=== PATIENT | female | born 1950 | race Caucasian/White ===

== ENCOUNTER 2016-12-30 08:08 | Emergency (ER) | payer BC ==
[~2016-12-30 08:08] MED LIST: ASA5GR PO; CYMBALTA60 PO; GLUCOPHXR PO; IBU800 PO; NEUR300 PO; NORV5 PO; ZESTORETIC1 TA1 PO
[2016-12-30 08:13] LABS: BASOPHILS 0.4 %; BASOPHILS ABSOLUTE 0.03 10/3/uL (0.0-0.16); EOSINOPHILS 3.3 %; EOSINOPHILS ABSOLUTE 0.26 10/3/uL (0.0-0.53); HEMATOCRIT 40.5 % (36.0-48.0); IMMATURE GRANULOCYTES 0.3 %; IMMATURE GRANULOCYTES ABSOLUTE 0.02 10/3/uL (0.0-0.11); LYMPHOCYTES 33.9 %; LYMPHOCYTES ABSOLUTE 2.64 10/3/uL (0.67-4.30); MEAN CORPUS HGB CONC 34.6 g/dL (32.0-36.0); MEAN CORPUSCULAR HEMOGLOB 31.6 pg (26.0-34.0); MEAN CORPUSCULAR VOLUME 91.4 fL (80-100); MEAN PLATELET VOLUME 9.9 fL (9.2-13.0); MONOCYTES 7.8 %; MONOCYTES ABSOLUTE 0.61 10/3/uL (0.21-1.20); NEUTROPHILS 54.3 %; NEUTROPHILS ABSOLUTE 4.22 10/3/uL (2.02-8.40); PLATELET COUNT 334 10/3/uL (150-400); RBC DISTRIBUTION WIDTH 13.1 % (12.0-16.0); RED CELL COUNT 4.43 10/6/uL (4.0-5.6); WHITE BLOOD CELLS 7.8 10/3/uL (4.5-10.5)
[2016-12-30 08:14] LABS: ER CBC TAT 0 Hrs 09 MinsNP; MANUAL DIFF NO %
[2016-12-30 08:29] LABS: CHLORIDE, SERUM 104 MMOL/L (96-112); CREATININE 0.88 MG/DL (0.55-1.02); GFR AFRICAN AMERICAN 80 ML/MIN (>=60); GFR NON AFRICAN AMERICAN 69 ML/MIN (>=60); POTASSIUM, SERUM 3.4 MMOL/L (3.5-5.3); SODIUM, SERUM 142 MMOL/L (135-148)
[2016-12-30 08:30] LABS: BUN (BLOOD UREA NITROGEN) 19 MG/DL (6-23); CO2 (CARBON DIOXIDE) 30 MMOL/L (24-34); GLUCOSE, SERUM 100 MG/DL (60-99)
[2016-12-30 09:49] LABS: ASCORBIC ACID (UR NOT ORDER) NEG (NEG); BILIRUBIN, URINE NEGATIVE (NEG); ER URINALYSIS TAT 0 Hrs 08 Mins; KETONE, URINE NEGATIVE (NEG); LEUKOCYTE ESTERASE(NOT OR TRACE (NEG); NITRITE (URINE) NEG (NEG); WBC (NOT ORDERED) (RFLEX) 3 (0-5)
== END 2016-12-30 10:37 | disposition home or self-care (01) ==
LOC: ER 08:08
PROVIDERS: Nurse Practitioner Family
DX: M25.552 Pain in left hip (principal); I10 Essential (primary) hypertension; F41.9 Anxiety disorder, unspecified; F32.9 Major depressive disorder, single episode, unspecified; E11.9 Type 2 diabetes mellitus without complications; M19.90 Unspecified osteoarthritis, unspecified site; Z90.49 Acquired absence of other specified parts of digestive tract; Z98.51 Tubal ligation status; Z98.84 Bariatric surgery status; Z88.5 Allergy status to narcotic agent; Z79.82 Long term (current) use of aspirin
CPT/HCPCS: 72131; 73700-LT; 80048; 81001; 85025; 96374; 99284

== ENCOUNTER 2017-01-02 19:37 | Inpatient (IN) | payer BC ==
--- NOTE | ~2017-01-02 | EGD ---
EGD REPORT [facility] [address] [address] NAME: JENNIFER RAE : [birth year] STATUS : ADM IN PAT#: [id number] AGE: 66 ADM/REG DATE : 01/02/17 MR#: [id number] REPORT SERV DATE: 01/09/17 DICTATED BY: JAIMIE JUAREZ DATE: 01/09/17 REPORT STATUS : Draft TRANSCRIBED BY: [facility] DATE: 01/09/17 [facility]oscopy Center Patient Name: Jennifer Rae Date of : 1950 Attending MD: JAIMIE JUAREZ MD Procedure Date No Time: 01/09/2017 Procedure: Colonoscopy Indications: Generalized abdominal pain, Anemia Referring MD: Rosalino Shields Medicines: Monitored Anesthesia Care Complications: No immediate complications. Procedure: Pre-Anesthesia Assessment: - ASA Grade Assessment: III - A patient with severe systemic disease. After I obtained informed consent, the scope was passed under direct vision. Throughout the procedure, the patient's blood pressure, pulse, and oxygen saturations were monitored continuously. The CF [id number] was introduced through the anus and advanced to the cecum, identified by appendiceal orifice and ileocecal valve. The colonoscopy was unusually difficult due to poor bowel prep with stool present. The patient tolerated the procedure well. The quality of the bowel preparation was poor. Findings: Non-bleeding internal hemorrhoids were found during retroflexion and were medium-sized. A large amount of extensive amounts of semi-solid solid stool was found in the entire colon, precluding visualization. Lavage of the area was performed using a large amount, resulting in incomplete clearance with continued poor visualization. The colon (entire examined portion) revealed significantly excessive looping. Impression: - Preparation of the colon was poor. - Non-bleeding internal hemorrhoids. - Stool in the entire examined colon. - There was significant looping of the colon. Recommendation: - Use sugar-free Metamucil one teaspoon PO BID daily. Procedure Code(s): --- Professional --- 68960, Colonoscopy, flexible, proximal to splenic flexure; diagnostic, with or without collection of EGD REPORT [facility] [address] [place] [address] [place]. [address] NAME: JENNIFER RAE : [birth year] STATUS : ADM IN [facility]#: [id number] AGE: 66 ADM/REG DATE : 01/02/17 MR#: [id number] REPORT SERV DATE: 01/09/17 DICTATED BY: JAIMIE JAUREZ DATE: 01/09/17 REPORT STATUS : Draft TRANSCRIBED BY: [employer] DATE: 01/09/17 specimen(s) by brushing or washing, with or without colon decompression (separate procedure) Diagnosis Code(s): --- Professional --- K64.8, Other hemorrhoids R10.84, Generalized abdominal pain D64.9, Anemia, unspecified CPT copyright 2013 [employer]. All rights reserved. The codes documented in this report are preliminary and upon barrel charrer review may be revised to meet current compliance requirements. JAIMIE JUAREZ MD 01/09/2017 11:52 AM This report has been signed electronically. Number of Addenda: 0 Note Initiated On: 01/09/2017 9:55 AM Scope Withdrawal Time 0 hours 6 minutes 52 seconds [address] [place] [address]
--- NOTE | ~2017-01-02 | IDS ---
Interim Discharge Summary [facility] [address] [place]. [address] NAME: GERARDO WATSON : 54 STATUS : ADM IN [facility]#: [id number] AGE: 66 ADM/REG DATE : 01/02/17 MR#: [id number] REPORT SERV DATE: 01/09/17 DICTATED BY: ROBERT CORONA DATE: 01/08/17 REPORT STATUS : Draft TRANSCRIBED BY: MODJr DATE: 01/08/17 ADMISSION DATE: 01/02/2017 DISCHARGE DATE: DATE OF INTERIM DISCHARGE: 01/08/2017. PROCEDURES DONE: 1. 01/03/2017 ultrasound of gallbladder; gallstones. No current sonographic evidence of cholecystitis or biliary obstruction. Obstruction of pancreas by gas. 2. 01/02/2017 CTA chest; CT of thoracic and abdominal aorta demonstrate no dissection, no aneurysm changes. There are some minimal atelectatic changes at the lung bases. There is a lap band in place. Gallbladder is full, wall is slightly indistinct. Are there any clinical features to suspect early cholecystitis ?. Incidentally includes splenic granulomata, prior hysterectomy. 3. 01/02/2017 CT abdomen and pelvis without contrast; Subtle 1 mm radiodense gallstones just within the lower gallbladder body and neck versus subtle radiodense tumefactive sludge. Questionable mild gallbladder wall thickening. Lap band device in satisfactory position. Status post hysterectomy and appendectomy. 4. 01/02/2017 chest x-ray PA and lateral, no acute cardiopulmonary abnormality. 5. 01/04/2017, EGD report by Dr. Song impression: Normal nasopharynx. LA grade B reflux esophagitis B. Rule out Nation's esophagus. Biopsied. Hiatal hernia. Gastritis. Biopsied. Nonbleeding erosive gastropathy. Normal examined duodenum. Biopsied. Recommend full liquid diet. Prilosec 20 mg p.o. daily x3 months. Follow up in three weeks. CONSULT: Dr. Mckeon, Dr. Perez, and Dr. Song for GI. REASON FOR ADMISSION: Abdominal pain. HISTORY OF HOSPITAL STAY: A 66-year-old white female with past medical history of hypertension, diabetes type 2, chronic back pain, history of lap band surgery presenting with abdominal pain. The patient was admitted for further evaluation of her abdominal pain. It was also noted the patient had hypertensive emergency during the time of the patient's abdominal pain. Cardiology was consulted regarding the patient's hypertensive urgency. The patient was started on hydrochlorothiazide, metoprolol which greatly improved the patient's blood pressure. More importantly, the patient had an epigastric pain that GI was consulted for further evaluation and treatment. The patient underwent colonoscopy which shows esophagitis. DIAGNOSES ON DISCHARGE: 1. Abdominal pain secondary to a positive esophagitis/gastritis. The patient underwent EGD which showed esophagitis and gastritis. The patient was started on full liquid diet. However, GI is trying to do a colonoscopy. Apparently, the patient cannot tolerate GoLYTELY. Hence, the patient was put on Mag citrate and lactulose to encourage bowel movements. 2. Hypertensive urgency. Currently asymptomatic. Continue the patient's Interim Discharge Summary [address] [address] NAME: GERARDO WATSON : [birth year] STATUS : ADM IN [facility]#: [id number] AGE: 66 ADM/REG DATE : 01/02/17 MR#: [id number] REPORT SERV DATE: 01/09/17 DICTATED BY: ROBERT CORONA. DATE: 01/08/17 REPORT STATUS : Draft TRANSCRIBED BY: MODJr DATE: 01/08/17 hydrochlorothiazide and metoprolol as well as lisinopril. 3. Diabetes type 2, currently well controlled. 4. Elevated troponin secondary to demand ischemia. 5. Obesity. BELA/ROEL Robert Corona MD / [id number] CC: MD Rosalino Liu
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
--- NOTE | ~2017-01-02 | CN ---
Consultation Report [facility] [address] [place]. [address] NAME: GERARDO RAE : 54 STATUS : ADM IN [facility]#: [id number] AGE: 66 ADM/REG DATE : 01/02/17 MR#: [id number] REPORT SERV DATE: 01/03/17 DICTATED BY: CB THOMAS DATE: 01/03/17 REPORT STATUS : Draft TRANSCRIBED BY: MODL DATE: 01/03/17 CARDIOVASCULAR CONSULTATION DATE OF CONSULTATION: 01/03/2017 CHIEF COMPLAINT: Elevated troponin. HISTORY OF PRESENT ILLNESS: Ms Rae is a 66-year-old woman with no prior cardiovascular history. She does have a history of hypertension, type 2 diabetes, and obesity status post lap band surgery. She was admitted through the emergency room at [facility] with abdominal pain and worsening chronic lower back pain. She had nausea and vomiting. Her blood pressure was noted to be quite elevated with systolic around 230. Her initial troponin was 0.1, subsequent troponin of 0.16. EKG shows no acute ischemic changes. The patient initially was complaining more of abdominal pain. There was some component of midsternal chest pain. Chest pain has currently resolved. PAST MEDICAL HISTORY: 1. Hypertension. 2. Type 2 diabetes. 3. Chronic lower back pain. 4. History of lap band surgery. 5. Status post hysterectomy and appendectomy. ALLERGIES: INCLUDE ULTRAM AND ZANAFLEX. MEDICATIONS ON ADMISSION: Include Cymbalta, gabapentin, ibuprofen, lisinopril/HCTZ 20/25 once a day, metformin 500 mg daily, and prednisone started in the emergency room for worsening back pain recently. FAMILY HISTORY: There is no family history of early coronary artery disease. SOCIAL HISTORY: She does not smoke or drink alcohol. REVIEW OF SYSTEMS: A complete review of systems was obtained, which is negative in detail except as mentioned above in the HPI. PHYSICAL EXAMINATION: BLOOD PRESSURE: 150/70, heart rate of 80, RESPIRATIONS: 14. GENERAL: Comfortable in no acute distress. HEENT: Anicteric. No xanthelasma. Lips without cyanosis. NECK: No JVD. Carotids 2+ and symmetric. No carotid bruits. Consultation Report [facility] [address] [place]. [address] NAME: GERARDO RAE : 54 STATUS : ADM IN PAT#: [id number] AGE: 66 ADM/REG DATE : 01/02/17 MR#: [id number] REPORT SERV DATE: 01/03/17 DICTATED BY: CB THOMAS DATE: 01/03/17 REPORT STATUS : Draft TRANSCRIBED BY: ROEL DATE: 01/03/17 LUNGS: CTA bilaterally. No wheezes or rhonchi. No accessory muscle use. COR: Regular rate and rhythm. Normal S1, S2. There is a grade 2/6 systolic ejection murmur at the base with radiation to the carotids bilaterally. ABD: Soft, nontender, nondistended. Normal bowel sounds. No abdominal bruits. EXT: No clubbing, cyanosis or edema 2+ and symmetric distal pulses. SKIN: Warm. Dry. No venous stasis changes. MS: No kyphosis. NEURO/PSYCH: Oriented x3. No anxiety or depression. LABORATORY STUDIES: BNP of 138. White count of 17,000, hematocrit of 40, and platelets of 327. Potassium of 3.4, creatinine of 0.78. Troponin of 0.1, 0.16, and 0.1. EKG: A 12-lead EKG shows sinus rhythm at 75 beats per minute. Nonspecific T-wave abnormalities are noted. No Q-waves. No ST-elevations. IMPRESSION: This is a 66-year-old woman without prior cardiovascular history, admitted with abdominal pain and severe hypertension. In this setting, she has had a demand ischemia type event. She has not had a non-ST elevation myocardial infarction. I recommend adding a beta shani to her regimen of DAVID inhibitor/HCTZ and Norvasc for her blood pressure control. I have recommended an echocardiogram. Conservative management from a Cardiovascular standpoint. Further treatment for her abdominal pain is ongoing. RAFAELA/ROEL Cb Thomas M.D. / [id number] CC: Neeraj Keith
--- NOTE | ~2017-01-02 | DS ---
Discharge Summary [facility] [address] [place]. [address] NAME: GERARDO WATSON : 54 STATUS : DIS IN PAT#: [id number] AGE: 66 ADM/REG DATE : 01/02/17 MR#: [id number] REPORT SERV DATE: 01/11/17 DICTATED BY: JONAH VALLES DATE: 01/10/17 REPORT STATUS : Draft TRANSCRIBED BY: MODL DATE: 01/10/17 ADMISSION DATE: 01/02/2017 DISCHARGE DATE: 01/10/2017 PRINCIPAL DIAGNOSIS: Hypertensive emergency with a positive troponin. SECONDARY DIAGNOSES: 1. Chest pain and epigastric abdominal pain due to esophagitis and gastritis. 2. Chronic low back pain. 3. Type 2 diabetes, in remission. HISTORY OF PRESENT ILLNESS: Please see Dr. Dukes's dictation on 01/02/2017. HOSPITAL COURSE: Please see interim summary by Dr. Kincaid on 01/08/2017. Subsequent hospital course, the patient's diet was advanced with her erosive esophagitis. She tolerated this well. She actually required no insulin whatsoever and not even a diabetic diet. Her pain was managed with p.o. medications. She met the maximum benefit of hospitalization by 01/10/2017. She is released to follow up with Dr. Rosalino Shields in one to two weeks. Diet and activity as tolerated. She was still unsteady on her feet, a walker prescription was given, but it was not thought that she will need this very long. She was out put back on Cymbalta 60 mg b.i.d. reduction of which may have contributed to her symptoms, Lopressor 50 mg b.i.d., Protonix 40 mg b.i.d., magnesium oxide daily, Lidoderm patch, Carafate q.i.d., Prinivil-HCT daily, Neurontin daily. RSM/ROEL Jonah Valles M.D. / [id number] CC: Neeraj Lowe PA
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
--- NOTE | ~2017-01-02 | CN ---
Consultation Report [facility] [address] [place]. [address] NAME: GERARDO WATSON : 54 STATUS : ADM IN PAT#: [id number] AGE: 66 ADM/REG DATE : 01/02/17 MR#: [id number] REPORT SERV DATE: 01/04/17 DICTATED BY: SAMEER PEREZ DATE: 01/04/17 REPORT STATUS : Draft TRANSCRIBED BY: ROEL DATE: 01/04/17 INPATIENT SPINE SURGERY CONSULTATION DATE OF CONSULTATION: 01/04/2017 REASON FOR CONSULTATION: Lumbar stenosis. HISTORY OF PRESENT ILLNESS: The patient is a 66-year-old female, who was seen and examined in her hospital room. She was admitted to the Hospitalist Service on 01/02/2017, with chief complaint of abdominal pain. She states that last week, she started having rather severe left lower extremity pain. She states that she has had some lower extremity pain in the left side for about 2 months, and she has had back pain for greater than 1 year. She states that she was given Medrol Dosepak and a muscle relaxer and that actually helped significantly with her leg pain and was doing much better until the abdominal issues started and she ended up being admitted to the hospital. REVIEW OF SYSTEMS: She denies chest pain or shortness of breath or bowel or bladder changes. PAST MEDICAL HISTORY: Includes hypertension, diabetes, chronic back pain. HOME MEDICATIONS: Include Cymbalta; gabapentin; ibuprofen; lisinopril, hydrochlorothiazide, metformin, and prednisone. PHYSICAL EXAMINATION: GENERAL: The patient is in no acute distress. She is sitting up in bed on the side of the bed and appears comfortable. PSYCHIATRIC: Alert and oriented x3. Normal mood and affect. Gait was not tested. VASCULAR: No extremity swelling. NEUROLOGIC: Strength in lower extremities remains 5/5 for the hip flexors, hamstrings, quadriceps, tibialis anterior, EHL, gastrocsoleus, and peroneals. IMAGING: I have reviewed the CT scan. She does have a calcified disk herniation on the left side at L5-S1 causing nerve compression. ASSESSMENT: 1. Calcified disk herniation L5-S1 left side. 2. Chronic back pain. 3. Left lower extremity pain, resolving. PLAN: I discussed options with the patient. The fact that she is doing much better and is focusing on her abdominal pain and hypertension at this point. I will have Physical Therapy work with the patient. I would be happy to see her as an outpatient but nothing emergent would need to be done during the hospital stay. Consultation Report [place] [id number] [place]. [address] NAME: GERARDO WATSON : 54 STATUS : ADM IN PAT#: [id number] AGE: 66 ADM/REG DATE : 01/02/17 MR#: [id number] REPORT SERV DATE: 01/04/17 DICTATED BY: SAMEER PEREZ DATE: 01/04/17 REPORT STATUS : Draft TRANSCRIBED BY: MODL DATE: 01/04/17 ASHLEY/ROEL Sameer Perez DO / [id number] CC: Cb Branch Jr, MD FRANKLIN H BAKER
--- NOTE | ~2017-01-02 | EGD ---
EGD REPORT [facility] [address] [place] [address] NAME: JENNIFER RAE : 54 STATUS : ADM IN PAT#: [id number] AGE: 66 ADM/REG DATE : 01/02/17 MR#: [id number] REPORT SERV DATE: 01/05/17 DICTATED BY: JAIMIE JUAREZ DATE: 01/05/17 REPORT STATUS : Draft [facility]ANSCRIBED [facility]: [facility] DATE: 01/05/17 [facility] Patient Name: Jennifer Rae Date of : 1950 Attending MD: JAIMIE JUAREZ MD Procedure Date No Time: 01/05/2017 Procedure: Upper GI endoscopy Indications: Upper abdominal pain Referring MD: Rosalino Shields Medicines: Monitored Anesthesia Care Complications: No immediate complications. Procedure: Pre-Anesthesia Assessment: - ASA Grade Assessment: III - A patient with severe systemic disease. After obtaining informed consent, the endoscope was passed under direct vision. Throughout the procedure, the patient's blood pressure, pulse, and oxygen saturations were monitored continuously. The GIF [id number] was introduced through the mouth, and advanced to the third part of duodenum. The upper GI endoscopy was accomplished without difficulty. The patient tolerated the procedure well. Findings: The nasopharynx was normal. LA Grade B (one or more mucosal breaks greater than 5 mm, not extending between the tops of two mucosal folds) esophagitis with no bleeding was found in the lower third of the esophagus. Biopsy with a cold forceps was performed for histology. Verification of patient identification for the specimen was done. Estimated blood loss was minimal. A 4 cm hiatus hernia was present. Diffuse mild inflammation characterized by congestion (edema) and erythema was found in the entire examined stomach. Biopsies were taken with a cold forceps for histology. Verification of patient identification for the specimen was done. Estimated blood loss was minimal. Multiple dispersed, medium-sized non-bleeding erosions were found in the stomach. There were no stigmata of recent bleeding. The examined duodenum was normal. Biopsies were taken with a cold forceps for histology. Verification of patient identification for the specimen was done. Estimated blood loss was minimal. Impression: - Normal nasopharynx. - LA Grade B reflux esophagitis. Rule out Nation's esophagus. Biopsied. EGD REPORT [address] [address] NAME: JENNIFER RAE : 54 STATUS : ADM IN [facility]#: [id number] AGE: 66 ADM/REG DATE : 01/02/17 MR#: [id number] REPORT SERV DATE: 01/05/17 DICTATED BY: JAIMIE JUAREZ DATE: 01/05/17 REPORT STATUS : Draft TRANSCRIBED BY: [employer] DATE: 01/05/17 - Hiatus hernia. - Gastritis. Biopsied. - Non-bleeding erosive gastropathy. - Normal examined duodenum. Biopsied. Recommendation: - Full liquid diet today. - Follow an antireflux regimen daily. - Use Prilosec (omeprazole) 20 mg PO daily for 3 months. - Return to my office in 3 weeks. Procedure Code(s): --- Professional --- 47596, Esophagogastroduodenoscopy, flexible, transoral; with biopsy, single or multiple Diagnosis Code(s): --- Professional --- K21.0, Gastro-esophageal reflux disease with esophagitis K44.9, Diaphragmatic hernia without obstruction or gangrene K29.70, Gastritis, unspecified, without bleeding K31.9, Disease of stomach and duodenum, unspecified R10.10, Upper abdominal pain, unspecified CPT copyright 2013 [employer]. All rights reserved. The codes documented in this report are preliminary and upon salesperson sheet music review may be revised to meet current compliance requirements. JAIMIE JUAREZ MD 01/05/2017 1:37 PM This report has been signed electronically. Number of Addenda: 0 Note Initiated On: 01/05/2017 1:11 PM Scope Withdrawal Time 0 hours 0 minutes 0 seconds [address] [place] [id number]
--- NOTE | ~2017-01-02 | HP ---
History And Physical [place] [id number] [facility] [place]. [address] NAME: GERARDO WATSON : 54 STATUS : ADM IN [facility]#: [id number] AGE: 66 ADM/REG DATE : 01/02/17 MR#: [id number] REPORT SERV DATE: 01/03/17 DICTATED BY: ALLI SKINNER DATE: 01/03/17 REPORT STATUS : Draft TRANSCRIBED BY: MODJr DATE: 01/03/17 DATE OF ADMISSION: 01/02/2017 ADDENDUM: LABS AND IMAGING: CTA of the chest, abdomen, and pelvis: No acute intrathoracic abnormalities detected. No aortic dissection. No pulmonary embolism. No acute intraabdominal abnormality or significant vascular lesions detected. Moderate gallbladder distention is likely on the basis of fasting. Given patient's persistent need for nitroglycerin drip for control of patient's blood pressure, she will be admitted to the IMCU. We will attempt to wean her off her nitroglycerin drip with use of oral medications and IV p.r.n.'s. Given negative CTA of the chest, abdomen, and pelvis, again I suspect that the patient's epigastric abdominal pain is likely gastritis or esophagitis from recent prednisone usage. As mentioned before, we will try to support her with holding her steroids, place her on PPI b.i.d., and observe for improvement. Critical care time spent on patient's admission is 50 minutes. KIRK/ROEL Alli Skinner MD / [id number] CC: Neeraj Keith FRANKLIN H
[2017-01-02 18:02] LABS: BASOPHILS 0.1 %; BASOPHILS ABSOLUTE 0.02 10/3/uL (0.0-0.16); EOSINOPHILS 0 %; HEMATOCRIT 41.7 % (36.0-48.0); HEMOGLOBIN 14.4 g/dL (12.0-16.0); IMMATURE GRANULOCYTES 0.8 %; IMMATURE GRANULOCYTES ABSOLUTE 0.15 10/3/uL (0.0-0.11); LYMPHOCYTES 12.2 %; LYMPHOCYTES ABSOLUTE 2.34 10/3/uL (0.67-4.30); MEAN CORPUS HGB CONC 34.5 g/dL (32.0-36.0); MEAN CORPUSCULAR HEMOGLOB 31.9 pg (26.0-34.0); MEAN CORPUSCULAR VOLUME 92.3 fL (80-100); MEAN PLATELET VOLUME 10.1 fL (9.2-13.0); MONOCYTES 7.8 %; MONOCYTES ABSOLUTE 1.51 10/3/uL (0.21-1.20); NEUTROPHILS 79.1 %; NEUTROPHILS ABSOLUTE 15.22 10/3/uL (2.02-8.40); PLATELET COUNT 375 10/3/uL (150-400); RBC DISTRIBUTION WIDTH 13.3 % (12.0-16.0); RED CELL COUNT 4.52 10/6/uL (4.0-5.6)
[2017-01-02 18:03] LABS: ER CBC TAT 0 Hrs 08 Mins; MANUAL DIFF NO %; WHITE BLOOD CELLS 19.2 10/3/uL (4.5-10.5)
[2017-01-02 18:19] LABS: CALCIUM, SERUM 9.4 MG/DL (8.5-10.4); CHLORIDE, SERUM 98 MMOL/L (96-112); CO2 (CARBON DIOXIDE) 31 MMOL/L (24-34); CREATININE 0.81 MG/DL (0.55-1.02); GFR AFRICAN AMERICAN 89 ML/MIN (>=60); GFR NON AFRICAN AMERICAN 77 ML/MIN (>=60); GLUCOSE, SERUM 112 MG/DL (60-99); POTASSIUM, SERUM 3.4 MMOL/L (3.5-5.3); SODIUM, SERUM 136 MMOL/L (135-148)
[2017-01-02 18:20] LABS: BUN (BLOOD UREA NITROGEN) 26 MG/DL (6-23)
[2017-01-02 18:21] LABS: CHEST PAIN PROFILE TAT 0 Hrs 26 Mins
[2017-01-02 18:28] LABS: PARTIAL THROMBO TIME 26.4 SEC (22.5-37.2); PROTIME (NOT ORD) 12.6 SEC (12.0-14.5)
[2017-01-02 19:24] LABS: ALBUMIN 4.4 G/DL (3.5-5.0); ALKALINE PHOSPHATASE 85 U/L (45-117); SGOT(AST) 17 U/L (5-40); SGPT(ALT) 22 U/L (5-65); TOTAL BILIRUBIN 0.5 MG/DL (0-1.2); TOTAL PROTEIN 8.6 G/DL (6.0-8.5)
[2017-01-02 19:26] LABS: DIRECT BILIRUBIN < 0.1 MG/DL (0.0-0.4); INDIRECT BILIRUBIN(NOT ORDER) 0.4 MG/DL (0.1-0.9)
[2017-01-02] MEDS ORDERED: CYMBALTA60 PO (20:09)
[2017-01-02] MEDS ORDERED: ADVIL PO (20:10)
[2017-01-02] MEDS ORDERED: NEUR300 PO (20:10)
[2017-01-02] MEDS ORDERED: ZESTORETIC1 TA1 PO (20:12)
[2017-01-02] MEDS ORDERED: GLUCPH PO (20:13)
[2017-01-02] MEDS ORDERED: MEDROLPAK4 PO (20:13)
[2017-01-03 04:29] LABS: BASOPHILS 0.1 %; BASOPHILS ABSOLUTE 0.02 10/3/uL (0.0-0.16); EOSINOPHILS 0 %; HEMOGLOBIN 13.7 g/dL (12.0-16.0); IMMATURE GRANULOCYTES 0.5 %; IMMATURE GRANULOCYTES ABSOLUTE 0.08 10/3/uL (0.0-0.11); LYMPHOCYTES 18.2 %; LYMPHOCYTES ABSOLUTE 3.09 10/3/uL (0.67-4.30); MEAN CORPUS HGB CONC 33.4 g/dL (32.0-36.0); MEAN CORPUSCULAR HEMOGLOB 31.4 pg (26.0-34.0); MEAN PLATELET VOLUME 10.1 fL (9.2-13.0); MONOCYTES 10.1 %; MONOCYTES ABSOLUTE 1.72 10/3/uL (0.21-1.20); NEUTROPHILS 71.1 %; NEUTROPHILS ABSOLUTE 12.09 10/3/uL (2.02-8.40); PLATELET COUNT 327 10/3/uL (150-400); RBC DISTRIBUTION WIDTH 13.3 % (12.0-16.0); RED CELL COUNT 4.36 10/6/uL (4.0-5.6)
[2017-01-03 04:38] LABS: BUN (BLOOD UREA NITROGEN) 27 MG/DL (6-23); CALCIUM, SERUM 9.3 MG/DL (8.5-10.4); CHLORIDE, SERUM 96 MMOL/L (96-112); CO2 (CARBON DIOXIDE) 31 MMOL/L (24-34); CPK (IF ELEVATED MB BANDS) 52 U/L (0-200); CREATININE 0.78 MG/DL (0.55-1.02); GFR AFRICAN AMERICAN 93 ML/MIN (>=60); GFR NON AFRICAN AMERICAN 80 ML/MIN (>=60); GLUCOSE, SERUM 106 MG/DL (60-99); POTASSIUM, SERUM 3.4 MMOL/L (3.5-5.3); SODIUM, SERUM 135 MMOL/L (135-148)
[2017-01-03 04:41] LABS: LACTATE 4.2 MMOL/L (0.3-2.4); MANUAL DIFF NO %
[2017-01-03 04:50] LABS: B NATRIURETIC PEPTIDE (BNP) 137.9 PG/ML (< 100.0)
[2017-01-03 07:28] LABS: GLYCOHEMOGLOBIN (HbA1c) 5.9 % (4.7-6.1)
[2017-01-03 13:08] LABS: FREE T4 1.18 NG/DL (0.76-1.46); ULTRASENSITIVE TSH 0.6 MCIU/ML (0.358-3.740)
[2017-01-03 13:09] LABS: TROPONIN I 0.05 NG/ML (<0.05)
[2017-01-03 20:04] LABS: CREATININE, URINE 56.3 MG/DL
[2017-01-04 06:31] LABS: BASOPHILS 0.1 %; BASOPHILS ABSOLUTE 0.01 10/3/uL (0.0-0.16); EOSINOPHILS 0.1 %; EOSINOPHILS ABSOLUTE 0.02 10/3/uL (0.0-0.53); HEMATOCRIT 40.1 % (36.0-48.0); HEMOGLOBIN 13.6 g/dL (12.0-16.0); IMMATURE GRANULOCYTES 0.4 %; IMMATURE GRANULOCYTES ABSOLUTE 0.06 10/3/uL (0.0-0.11); LYMPHOCYTES 11.7 %; LYMPHOCYTES ABSOLUTE 1.87 10/3/uL (0.67-4.30); MEAN CORPUS HGB CONC 33.9 g/dL (32.0-36.0); MEAN CORPUSCULAR HEMOGLOB 31.3 pg (26.0-34.0); MEAN CORPUSCULAR VOLUME 92.4 fL (80-100); MONOCYTES 8.7 %; MONOCYTES ABSOLUTE 1.38 10/3/uL (0.21-1.20); NEUTROPHILS ABSOLUTE 12.58 10/3/uL (2.02-8.40); PLATELET COUNT 279 10/3/uL (150-400); RBC DISTRIBUTION WIDTH 13.1 % (12.0-16.0); RED CELL COUNT 4.34 10/6/uL (4.0-5.6); WHITE BLOOD CELLS 15.9 10/3/uL (4.5-10.5)
[2017-01-04 06:40] LABS: ALKALINE PHOSPHATASE 85 U/L (45-117); CALCIUM, SERUM 9.3 MG/DL (8.5-10.4); CHLORIDE, SERUM 98 MMOL/L (96-112); CO2 (CARBON DIOXIDE) 31 MMOL/L (24-34); GFR AFRICAN AMERICAN 106 ML/MIN (>=60); GFR NON AFRICAN AMERICAN 92 ML/MIN (>=60); GLUCOSE, SERUM 122 MG/DL (60-99); POTASSIUM, SERUM 3.4 MMOL/L (3.5-5.3); SGOT(AST) 12 U/L (5-40); SGPT(ALT) 17 U/L (5-65); SODIUM, SERUM 136 MMOL/L (135-148); TOTAL PROTEIN 7.2 G/DL (6.0-8.5)
[2017-01-04 06:42] LABS: MANUAL DIFF NO %
[2017-01-04 06:44] LABS: A/G RATIO 0.7 (0.7-1.9); BUN (BLOOD UREA NITROGEN) 14 MG/DL (6-23); GLOBULIN 4.2 G/DL (2.5-4.1)
[2017-01-05 07:01] LABS: BASOPHILS 0.2 %; BASOPHILS ABSOLUTE 0.03 10/3/uL (0.0-0.16); EOSINOPHILS 0.9 %; EOSINOPHILS ABSOLUTE 0.12 10/3/uL (0.0-0.53); HEMATOCRIT 37.1 % (36.0-48.0); HEMOGLOBIN 12.7 g/dL (12.0-16.0); IMMATURE GRANULOCYTES 0.8 %; IMMATURE GRANULOCYTES ABSOLUTE 0.11 10/3/uL (0.0-0.11); LYMPHOCYTES 18.5 %; LYMPHOCYTES ABSOLUTE 2.51 10/3/uL (0.67-4.30); MEAN CORPUS HGB CONC 34.2 g/dL (32.0-36.0); MEAN CORPUSCULAR HEMOGLOB 31.6 pg (26.0-34.0); MEAN CORPUSCULAR VOLUME 92.3 fL (80-100); MEAN PLATELET VOLUME 10.7 fL (9.2-13.0); MONOCYTES 9.4 %; MONOCYTES ABSOLUTE 1.27 10/3/uL (0.21-1.20); NEUTROPHILS 70.2 %; NEUTROPHILS ABSOLUTE 9.51 10/3/uL (2.02-8.40); PLATELET COUNT 273 10/3/uL (150-400); RBC DISTRIBUTION WIDTH 13.5 % (12.0-16.0); RED CELL COUNT 4.02 10/6/uL (4.0-5.6); WHITE BLOOD CELLS 13.6 10/3/uL (4.5-10.5)
[2017-01-05 07:03] LABS: MANUAL DIFF NO %
[2017-01-05 07:38] LABS: CALCIUM, SERUM 9.5 MG/DL (8.5-10.4); CHLORIDE, SERUM 97 MMOL/L (96-112); CO2 (CARBON DIOXIDE) 34 MMOL/L (24-34); GFR AFRICAN AMERICAN 78 ML/MIN (>=60); GFR NON AFRICAN AMERICAN 68 ML/MIN (>=60); GLUCOSE, SERUM 123 MG/DL (60-99); POTASSIUM, SERUM 3.7 MMOL/L (3.5-5.3); SODIUM, SERUM 136 MMOL/L (135-148)
[2017-01-05 07:39] LABS: BUN (BLOOD UREA NITROGEN) 20 MG/DL (6-23)
[2017-01-06 06:34] LABS: BASOPHILS 0.2 %; BASOPHILS ABSOLUTE 0.02 10/3/uL (0.0-0.16); EOSINOPHILS 1.4 %; EOSINOPHILS ABSOLUTE 0.18 10/3/uL (0.0-0.53); HEMOGLOBIN 13.2 g/dL (12.0-16.0); IMMATURE GRANULOCYTES 0.2 %; IMMATURE GRANULOCYTES ABSOLUTE 0.03 10/3/uL (0.0-0.11); LYMPHOCYTES 19.6 %; LYMPHOCYTES ABSOLUTE 2.54 10/3/uL (0.67-4.30); MEAN CORPUS HGB CONC 33.8 g/dL (32.0-36.0); MEAN CORPUSCULAR HEMOGLOB 31.4 pg (26.0-34.0); MEAN CORPUSCULAR VOLUME 92.9 fL (80-100); MEAN PLATELET VOLUME 9.9 fL (9.2-13.0); MONOCYTES 9.1 %; MONOCYTES ABSOLUTE 1.18 10/3/uL (0.21-1.20); NEUTROPHILS 69.5 %; NEUTROPHILS ABSOLUTE 9.04 10/3/uL (2.02-8.40); PLATELET COUNT 306 10/3/uL (150-400); RBC DISTRIBUTION WIDTH 13.6 % (12.0-16.0)
[2017-01-06 06:35] LABS: MANUAL DIFF NO %
[2017-01-06 06:53] LABS: A/G RATIO 0.6 (0.7-1.9); ALBUMIN 2.9 G/DL (3.5-5.0); BUN (BLOOD UREA NITROGEN) 19 MG/DL (6-23); CALCIUM, SERUM 9.3 MG/DL (8.5-10.4); CHLORIDE, SERUM 98 MMOL/L (96-112); CO2 (CARBON DIOXIDE) 33 MMOL/L (24-34); CREATININE 0.85 MG/DL (0.55-1.02); GFR AFRICAN AMERICAN 84 ML/MIN (>=60); GFR NON AFRICAN AMERICAN 72 ML/MIN (>=60); GLOBULIN 4.7 G/DL (2.5-4.1); GLUCOSE, SERUM 113 MG/DL (60-99); PHOSPHORUS, SERUM 3.3 MG/DL (2.5-4.5); SGOT(AST) 14 U/L (5-40); SGPT(ALT) 18 U/L (5-65); SODIUM, SERUM 136 MMOL/L (135-148); TOTAL BILIRUBIN 0.7 MG/DL (0-1.2); TOTAL PROTEIN 7.6 G/DL (6.0-8.5)
[2017-01-06 06:56] LABS: ALKALINE PHOSPHATASE 105 U/L (45-117)
[2017-01-07 05:59] LABS: BASOPHILS 0.2 %; BASOPHILS ABSOLUTE 0.02 10/3/uL (0.0-0.16); EOSINOPHILS 2.4 %; EOSINOPHILS ABSOLUTE 0.29 10/3/uL (0.0-0.53); HEMATOCRIT 35.3 % (36.0-48.0); HEMOGLOBIN 12.2 g/dL (12.0-16.0); IMMATURE GRANULOCYTES 0.3 %; IMMATURE GRANULOCYTES ABSOLUTE 0.04 10/3/uL (0.0-0.11); LYMPHOCYTES 19.8 %; LYMPHOCYTES ABSOLUTE 2.37 10/3/uL (0.67-4.30); MEAN CORPUS HGB CONC 34.6 g/dL (32.0-36.0); MEAN CORPUSCULAR HEMOGLOB 31.4 pg (26.0-34.0); MEAN PLATELET VOLUME 9.5 fL (9.2-13.0); NEUTROPHILS 67.3 %; NEUTROPHILS ABSOLUTE 8.07 10/3/uL (2.02-8.40); PLATELET COUNT 294 10/3/uL (150-400); RBC DISTRIBUTION WIDTH 13.3 % (12.0-16.0); RED CELL COUNT 3.88 10/6/uL (4.0-5.6)
[2017-01-07 06:03] LABS: MANUAL DIFF NO %
[2017-01-07 06:16] LABS: A/G RATIO 0.6 (0.7-1.9); ALBUMIN 2.8 G/DL (3.5-5.0); ALKALINE PHOSPHATASE 108 U/L (45-117); BUN (BLOOD UREA NITROGEN) 17 MG/DL (6-23); CALCIUM, SERUM 9.5 MG/DL (8.5-10.4); CHLORIDE, SERUM 96 MMOL/L (96-112); CO2 (CARBON DIOXIDE) 31 MMOL/L (24-34); CREATININE 0.89 MG/DL (0.55-1.02); GFR AFRICAN AMERICAN 79 ML/MIN (>=60); GFR NON AFRICAN AMERICAN 68 ML/MIN (>=60); GLUCOSE, SERUM 121 MG/DL (60-99); PHOSPHORUS, SERUM 3.8 MG/DL (2.5-4.5); POTASSIUM, SERUM 3.9 MMOL/L (3.5-5.3); SGOT(AST) 14 U/L (5-40); SGPT(ALT) 24 U/L (5-65); SODIUM, SERUM 134 MMOL/L (135-148); TOTAL BILIRUBIN 0.6 MG/DL (0-1.2); TOTAL PROTEIN 7.8 G/DL (6.0-8.5)
[2017-01-08 09:16] LABS: BASOPHILS 0.2 %; BASOPHILS ABSOLUTE 0.02 10/3/uL (0.0-0.16); EOSINOPHILS 1.5 %; EOSINOPHILS ABSOLUTE 0.18 10/3/uL (0.0-0.53); HEMATOCRIT 38.8 % (36.0-48.0); HEMOGLOBIN 13.2 g/dL (12.0-16.0); IMMATURE GRANULOCYTES 0.3 %; IMMATURE GRANULOCYTES ABSOLUTE 0.04 10/3/uL (0.0-0.11); LYMPHOCYTES 22.5 %; LYMPHOCYTES ABSOLUTE 2.78 10/3/uL (0.67-4.30); MANUAL DIFF NO %; MEAN CORPUSCULAR HEMOGLOB 31.3 pg (26.0-34.0); MEAN CORPUSCULAR VOLUME 91.9 fL (80-100); MEAN PLATELET VOLUME 9.7 fL (9.2-13.0); MONOCYTES 8.9 %; NEUTROPHILS 66.6 %; NEUTROPHILS ABSOLUTE 8.24 10/3/uL (2.02-8.40); PLATELET COUNT 308 10/3/uL (150-400); RBC DISTRIBUTION WIDTH 13.3 % (12.0-16.0); RED CELL COUNT 4.22 10/6/uL (4.0-5.6); WHITE BLOOD CELLS 12.4 10/3/uL (4.5-10.5)
[2017-01-08 09:43] LABS: ALBUMIN 2.9 G/DL (3.5-5.0); BUN (BLOOD UREA NITROGEN) 15 MG/DL (6-23); CALCIUM, SERUM 8.9 MG/DL (8.5-10.4); CHLORIDE, SERUM 95 MMOL/L (96-112); CREATININE 0.84 MG/DL (0.55-1.02); GFR AFRICAN AMERICAN 85 ML/MIN (>=60); GFR NON AFRICAN AMERICAN 73 ML/MIN (>=60); GLUCOSE, SERUM 110 MG/DL (60-99); PHOSPHORUS, SERUM 4.6 MG/DL (2.5-4.5); SODIUM, SERUM 131 MMOL/L (135-148)
[2017-01-08 09:44] LABS: CO2 (CARBON DIOXIDE) 25 MMOL/L (24-34)
[2017-01-09 05:31] LABS: BASOPHILS 0.1 %; BASOPHILS ABSOLUTE 0.02 10/3/uL (0.0-0.16); EOSINOPHILS 1.4 %; EOSINOPHILS ABSOLUTE 0.19 10/3/uL (0.0-0.53); HEMATOCRIT 35.2 % (36.0-48.0); IMMATURE GRANULOCYTES 0.4 %; IMMATURE GRANULOCYTES ABSOLUTE 0.05 10/3/uL (0.0-0.11); LYMPHOCYTES 17.9 %; LYMPHOCYTES ABSOLUTE 2.43 10/3/uL (0.67-4.30); MANUAL DIFF NO %; MEAN CORPUS HGB CONC 34.1 g/dL (32.0-36.0); MEAN CORPUSCULAR HEMOGLOB 31.6 pg (26.0-34.0); MEAN CORPUSCULAR VOLUME 92.6 fL (80-100); MEAN PLATELET VOLUME 9.4 fL (9.2-13.0); MONOCYTES 7.8 %; MONOCYTES ABSOLUTE 1.05 10/3/uL (0.21-1.20); NEUTROPHILS 72.4 %; PLATELET COUNT 315 10/3/uL (150-400); RBC DISTRIBUTION WIDTH 13.3 % (12.0-16.0); WHITE BLOOD CELLS 13.5 10/3/uL (4.5-10.5)
[2017-01-09 05:45] LABS: A/G RATIO 0.6 (0.7-1.9); ALBUMIN 2.8 G/DL (3.5-5.0); BUN (BLOOD UREA NITROGEN) 15 MG/DL (6-23); CALCIUM, SERUM 9.2 MG/DL (8.5-10.4); CHLORIDE, SERUM 97 MMOL/L (96-112); CO2 (CARBON DIOXIDE) 29 MMOL/L (24-34); GFR AFRICAN AMERICAN 78 ML/MIN (>=60); GFR NON AFRICAN AMERICAN 68 ML/MIN (>=60); GLOBULIN 4.8 G/DL (2.5-4.1); GLUCOSE, SERUM 111 MG/DL (60-99); POTASSIUM, SERUM 3.5 MMOL/L (3.5-5.3); SGOT(AST) 21 U/L (5-40); SGPT(ALT) 28 U/L (5-65); SODIUM, SERUM 134 MMOL/L (135-148); TOTAL BILIRUBIN 0.6 MG/DL (0-1.2); TOTAL PROTEIN 7.6 G/DL (6.0-8.5)
[2017-01-09 05:49] LABS: ALKALINE PHOSPHATASE 148 U/L (45-117)
[2017-01-10] MEDS ORDERED: LIDODERM TOP (12:34)
[2017-01-10] MEDS ORDERED: MAGOX4 PO (12:36)
[2017-01-10] MEDS ORDERED: LOP50 PO (12:39)
[2017-01-10] MEDS ORDERED: LIDOCAINE PO (12:42)
[2017-01-10] MEDS ORDERED: [UNRECOGNIZED DRUG - OTHER] PO (12:42)
[2017-01-10] MEDS ORDERED: PROTONIX PO (12:43)
[2017-01-10] MEDS ORDERED: K-TABS10 MEQ PO (12:44)
[2017-01-10] MEDS ORDERED: SUCR PO (12:45)
== END 2017-01-10 14:33 | disposition home or self-care (01) | DRG 392 ==
LOC: ER 19:37 → IMCU 23:45 → 7NO 01-03 23:20
PROVIDERS: Emergency Medicine; Hospitalist; Internal Medicine; Internal Medicine Gastroenterology
PROC: 0DB98ZX Excision of Duodenum, Via Natural or Artificial Opening Endoscopic, Diagnostic (ICD-10-PCS; 2017-01-05)
PROC: 0DB68ZX Excision of Stomach, Via Natural or Artificial Opening Endoscopic, Diagnostic (ICD-10-PCS; 2017-01-05)
PROC: 0DB38ZX Excision of Lower Esophagus, Via Natural or Artificial Opening Endoscopic, Diagnostic (ICD-10-PCS; principal; 2017-01-05 13:18)
PROC: 0DJD8ZZ Inspection of Lower Intestinal Tract, Via Natural or Artificial Opening Endoscopic (ICD-10-PCS; 2017-01-09)
DX: K29.70 Gastritis, unspecified, without bleeding (principal); N17.9 Acute kidney failure, unspecified; I24.8 Other forms of acute ischemic heart disease; E11.9 Type 2 diabetes mellitus without complications; D64.9 Anemia, unspecified; I10 Essential (primary) hypertension; I16.0 Hypertensive urgency; F32.9 Major depressive disorder, single episode, unspecified; R10.9 Unspecified abdominal pain; Z90.710 Acquired absence of both cervix and uterus; Z98.890 Other specified postprocedural states; Z90.49 Acquired absence of other specified parts of digestive tract; Z88.8 Allergy status to other drugs, medicaments and biological substances; Z79.899 Other long term (current) drug therapy; M51.27 Other intervertebral disc displacement, lumbosacral region; K64.8 Other hemorrhoids; Z68.35 Body mass index [BMI] 35.0-35.9, adult; E66.9 Obesity, unspecified; M54.30 Sciatica, unspecified side; K21.0 Gastro-esophageal reflux disease with esophagitis; F41.9 Anxiety disorder, unspecified; M25.552 Pain in left hip; Z98.84 Bariatric surgery status; Z88.5 Allergy status to narcotic agent; Z79.82 Long term (current) use of aspirin
CPT/HCPCS: 71020; 71275; 72131; 73700-LT; 74174; 74176; 76705; 80048; 80053; 80069; 80076; 81001; 82550; 82570; 82962; 83036; 83605; 83690; 83735; 83880; 83935; 84100; 84300; 84439; 84443; 84484; 85025; 85610; 85730; 87641; 88305; 93005; 93306; 96365; 96366; 96374; 96375; 97116-GP; 97161-GP; 99284; 99285; A9270-GY; C9113; J0360; J1170; J2405; Q9967

== ENCOUNTER 2017-02-01 12:46 | Inpatient (IN) | payer BC ==
--- NOTE | ~2017-02-01 | DS ---
Discharge Summary [facility] [address] [place]. [address] NAME: GERARDO RAE : 54 STATUS : DIS IN PAT#: [id number] AGE: 66 ADM/REG DATE : 02/01/17 MR#: [id number] REPORT SERV DATE: 02/11/17 DICTATED BY: Marcella GALINDO DATE: 02/10/17 REPORT STATUS : Draft TRANSCRIBED BY: MODL DATE: 02/10/17 ADMISSION DATE: 02/01/2017 DISCHARGE DATE: 02/10/2017 The patient was admitted to the Hospitalist Service. CONSULTANTS: Ray Pollard D.O., Orthopedic Surgery. DISCHARGE DIAGNOSES: 1. Intractable low back pain with spinal stenosis and radiculopathy. 2. Status post left L5-S1 hemilaminectomy, foraminotomy, and facetectomy with anterior interbody cage insertion and transforaminal diskectomy. 3. Postoperative pain. 4. Nocturnal hypoxia. 5. Hypertension. 6. Gastroesophageal reflux disease with a history of erosive esophagitis. 7. Acute blood loss anemia postoperative. PROCEDURES: On 02/04/2017, the patient underwent microscopic navigation-assisted surgery consisting of a left L5-S1 hemilaminectomy, foraminotomy, and facetectomy with a sacral dome osteotomy; anterior interbody cage insertion and posterolateral interbody fusion with local bone graft and allograft per Dr. Ray Pollard. IMAGING AND DIAGNOSTICS: 1. On 02/02/2017, MRI of the L-spine showed herniation and neural foraminal stenosis at L5- S1. 2. On 02/01/2017, CT of the abdomen and pelvis revealed CT evidence of acute cholecystitis. No radiodense gallstones. Stable changes of appendectomy and hysterectomy. Otherwise, negative exam. 3. On 02/07/2017, chest x-ray, portable revealed no evidence of acute cardiopulmonary disease. 4. On 02/09/2017, the patient had overnight pulse oximetry, which showed total valid sampling time of 6 hours and 2 minutes, total time with O2 saturation less than 88% is 1 hour, 15 minutes and 54 seconds. Impression: There was significant oxygen desaturation during this study conducted with the patient breathing on room air. The oxygen desaturation event index was elevated suspicious for possible obstructive sleep apnea. Recommend supplemental O2 at 2 liters a minute with sleep. Additionally, recommend formal sleep study to evaluate for possible obstructive sleep apnea. LABORATORY STUDIES: 1. Discharge labs on 02/10/2017 revealed a CBC; white count 7.7, hemoglobin 9.3, hematocrit 28.5, and platelets 360,000. 2. Basic metabolic panel; sodium 137, potassium 4.3, chloride 99, CO2 34, BUN 12, creatinine 0.83, GFR 75, glucose 92, and calcium 9.0. HISTORY OF PRESENT ILLNESS: For complete history, please refer to admission H and P by Dr. Discharge Summary [address] [address] NAME: GERARDO RAE : 54 STATUS : DIS IN PAT#: [id number] AGE: 66 ADM/REG DATE : 02/01/17 MR#: [id number] REPORT SERV DATE: 02/11/17 DICTATED BY: Marcella GALINDO DATE: 02/10/17 REPORT STATUS : Draft TRANSCRIBED BY: ROEL DATE: 02/10/17 Placido Tapia on 02/01/2017. Briefly, Ms. Rae is a pleasant 66-year-old female with chief complaint of back pain and passing out. She was recently discharged from the hospital in December in the Hospitalist Service with severe erosive gastritis, esophagitis, abdominal pain, and chronic back pain. She came into the emergency room this time with complaints of passing out, syncope, and inability to stand and walk secondary to significant intractable low back pain. She was admitted to the Hospitalist Service for further evaluation and treatment. In the emergency room, she was noted to be dehydrated with an acute kidney injury as well. HOSPITAL COURSE: The patient was admitted to the orthopedic unit on defensive monitoring. She was given IV fluids, 2 g sodium, diabetic diet. DVT prophylaxis and orthostatic vital signs, IV fluids and PT eval and treat order was written. However, I initially saw the patient the following day. She was complaining of significant low back pain and sciatica with the left lower extremity pain radiating from her left buttock cheek down her left leg. She is requesting to be seen by Dr. Pollard. On this date, consult was requested and Dr. Pollard did see her. Orthostatic vital signs on 02/02/[address] Pollard saw the patient on 02/02/2017 and ordered an MRI of the L-spine, results are as above. On 02/03/2017, he discussed the risks and benefits of the surgery and the patient was in agreement to proceed, and she did undergo surgery as above on 02/04/2017. Since her surgery, she has been recovering slowly due to significant postop low back pain with continued sciatica down her left leg. Over the past several days since her surgery, her medications have been adjusted and currently are controlling her pain. She did have some noted hypoxia postop on day #3, therefore, she was placed back on oxygen 2 to 2.5 liters per nasal cannula. She was progressively weaned off this. However, on the night of 02/09/2017, an overnight pulse oximetry study was ordered on room air, results are as above. The patient did have significant times of desaturation and nocturnal O2 has been recommended as well as a formal outpatient sleep study. Today, 02/10/2017, the patient is feeling better. Pain is improved with the change in medication regimen and she is ready for discharge to rehabilitation at [facility]. Today, her O2 saturation on room air is 95%. Her vital signs are stable. Blood pressure is 130/63, heart rate 82, O2 saturation 98% on room air. She is afebrile. Her lungs are clear to auscultation bilaterally. Cardiovascular; she is in a sinus rhythm. No murmurs, rubs, or gallops. Abdomen is soft and nontender. Active bowel sounds. She did have several good bowel movements on the day prior to the discharge. She has palpable distal pulses with no edema, clubbing, or cyanosis. Her discharge laboratory studies are as above. Therefore, she is discharged safely over to [facility] for continued rehabilitation. DISCHARGE INSTRUCTIONS: Include: 1. Diet as tolerated. 2. Activity, PT and OT to evaluate and treat. 3. Discharge medications, which are as follows:. a. Acyclovir 400 mg p.o. every eight hours x1 week, stop after 6:00 a.m. dose on 02/12/2017. b. Colace 100 mg p.o. b.i.d., hold for loose stool. c. Cymbalta 60 mg p.o. b.i.d. d. Gabapentin 600 mg p.o. at bedtime and 300 mg p.o. at 9:00 a.m. and 3:00 p.m. Discharge Summary [facility] [address] [place]. [address] NAME: GERARDO RAE : 54 STATUS : DIS IN PAT#: [id number] AGE: 66 ADM/REG DATE : 02/01/17 MR#: [id number] REPORT SERV DATE: 02/11/17 DICTATED BY: Marcella GALINDO DATE: 02/10/17 REPORT STATUS : Draft TRANSCRIBED BY: ROEL DATE: 02/10/17 e. Lidoderm patch topically twice a day. f. Robaxin 500 mg p.o. every eight hours. g. Multivitamin one p.o. daily. h. Lopressor 50 mg p.o. b.i.d., hold for systolic blood pressure less than or equal to 120 and a heart rate less than 60. i. Protonix 40 mg p.o. daily. j. Metamucil one packet daily. k. Carafate 1 g before each meal and at bedtime. l. Tylenol 650 mg p.o. or p.r. q.4 hours p.r.n. m. Mylanta 30 mL p.o. p.r.n. n. Dulcolax suppository p.r.n. o. Dulcolax 15 mg tablet p.o. p.r.n. constipation. p. Valium 2 mg p.o. every four hours p.r.n. spasms. q. Benadryl 12.5 mg p.o. q.6 hours p.r.n. r. Hydrocodone 7.5/325 mg one to two tablets p.o. q.4 hours p.r.n. s. Melatonin 9 mg p.o. at bedtime p.r.n. t. Milk of magnesia 30 mL p.o. b.i.d. p.r.n. u. Zofran 4 mg p.o. p.r.n. every six hours. I. Senokot two tablets p.o. p.r.n. v. Fleet Enema p.r.n. constipation. I. Lisinopril/HCTZ 20/25 mg one p.o. daily, hold for systolic blood pressure less than or equal to 120. Other discharge instructions include Ms. Rae will follow up with her primary care provider, Dr. Rosalino Shields, after discharge from [facility]. She will follow up with Dr. Pollard as scheduled. I have personally made her a new patient appointment with Dr. Curt Lancaster, operations and maintenance specialist with [facility] on 03/29/2017 at 11:40 am. She is also prescribed nocturnal oxygen at 2 liters per nasal cannula at time of discharge from here and she will require home O2 when she is discharged from [facility] to home nocturnal oxygen at 2 liters per nasal cannula. DICTATED BY: TIFFANI Ayon DICTATED FOR: Neeraj Keith/ROEL TIFFANI Ayon Marcella Galindo M.D. Discharge Summary [address] [address] NAME: GERARDO RAE : 54 STATUS : DIS IN PAT#: [id number] AGE: 66 ADM/REG DATE : 02/01/17 MR#: [id number] REPORT SERV DATE: 02/11/17 DICTATED BY: Marcella GALINDO DATE: 02/10/17 REPORT STATUS : Draft TRANSCRIBED BY: MYRAL DATE: 02/10/17 / [id number] CC: Neeraj Keith FRANKLIN H Vincent Viscomi, M.D., F.C.C.PJorge A
--- NOTE | ~2017-02-01 | PUL ---
[address] [place]. [address] NAME: GERARDO WATSON : 54 STATUS : ADM IN [facility]#: [id number] AGE: 66 ADM/REG DATE : 02/01/17 MR#: [id number] REPORT SERV DATE: 02/10/17 DICTATED BY: CHELLY DENNISON DATE: 02/10/17 REPORT STATUS : Draft TRANSCRIBED BY: MODL DATE: 02/10/17 PULMONARY FUNCTION TEST START DATE OF TESTIN02/09/2017. END DATE OF TESTIN02/10/2017. COMMENTS: Testing was conducted with the patient breathing room air. RESULTS: 1. Total valid sampling time 6 hours and 2 minutes. 2. Total time with an oxygen saturation less than 88%, 1 hour 15 minutes and 54 seconds. 3. Oxygen desaturation event index 51.5. IMPRESSION: There was significant oxygen desaturation during this study conducted with the patient breathing room air. The oxygen desaturation event index was elevated suspicious for possible obstructive sleep apnea. Recommend supplemental oxygen at a minimum flow rate of 2 L/minute with sleep. Additionally, recommend formal sleep study to evaluate for possible obstructive sleep apnea if clinically indicated. PS/ROEL Chelly Dennison M.D. / [id number] CC: Neeraj Keith
--- NOTE | ~2017-02-01 | CN ---
Consultation Report [facility] [address] [place]. [address] NAME: GERARDO WATSON : 54 STATUS : ADM Nathalie PAT#: [id number] AGE: 66 ADM/REG DATE : 02/01/17 MR#: [id number] REPORT SERV DATE: 02/03/17 DICTATED BY: RAY MATHEW DATE: 02/02/17 REPORT STATUS : Draft TRANSCRIBED BY: MODL DATE: 02/02/17 CONSULTATION DATE OF CONSULTATION: 02/02/2017 CHIEF COMPLAINT: Severe back pain and left leg pain. 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 Over the years, she has had multiple forms of conservative care with time, medication, etc. She is not a candidate for epidural injections because of the history of diabetes, but otherwise she has had all the usual forms of conservative care. She had a CT scan a month ago on 12/29/2016, which was positive for severe disk degeneration at L5-S1. There was also a large spondylotic bar along the anterior aspect of the body of L5 which wraps around the exiting L5 nerve root and causes severe foraminal stenosis on the left side only. Her pain is intractable with standing and walking, and she has gotten to the point where she actually had to come to the ER and be admitted last night. I had actually set her up to see us in the office yesterday, but the pain was so severe she could not come out of the house, however, brought by EMS to the ER and admitted last night. Pain is now 10/10 and the patient just says she cannot take it any longer, something has to be done. The past medical history, social history, family history, medications, allergies, etc, is available in the history and physical. See that for detail. PHYSICAL EXAMINATION: GENERAL: She is alert, cooperative, well oriented. She ambulated independently, but does have severe pain with trying to transfer from sitting to standing. She had great difficulty with any attempts at ambulation. MUSCULOSKELETAL: The spine exam reveals no gross deformities. There is no step-offs in the midline. There is no significant paraspinous muscle tenderness or spasm. Straight leg raising tests are negative. She does have weakness of the left L5 nerve root. The tibialis anterior and EHL are all 4/5. She has had decreased L5 sensation to light touch and to pinwheel testing. She also has some stocking-glove decreased to light touch in both lower extremities associated with neuropathy. Patellar reflex is 1/4. The left Achilles is absent, the right Achilles is 1/4. Toes are downgoing. No ankle clonus is found. No abnormal pain behavior is noted. Vital signs are negative. Fabere signs are negative. Orthopedically, she has no pain with movement of hips, knees, or ankles. There are good pulses in all four extremities. No abnormal skin lesions are found. ASSESSMENT: Severe spinal stenosis, left L5-S1 due to spondylitic bar and foraminal stenosis. Would require complete facetectomy on the left in order to completely decompress. RECOMMENDATION: At this time, I am going to order an MRI which has not been done. She has Consultation Report [address] [place]. [address] NAME: GERARDO WATSON : 54 STATUS : ADM Nathalie PAT#: [id number] AGE: 66 ADM/REG DATE : 02/01/17 MR#: [id number] REPORT SERV DATE: 02/03/17 DICTATED BY: RAY MATHEW DATE: 02/02/17 REPORT STATUS : Draft TRANSCRIBED BY: ROEL DATE: 02/02/[address] scan, see if there is any additional other abnormality. CT scan does appear to show some mild to moderate degree of central stenosis and I want to further evaluate this with MRI. Final recommendations to follow. /ROEL Ray Mathew D.O. / [id number] CC: Neeraj Keith Franklin H
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
[2017-02-01 12:22] LABS: BASOPHILS 0.1 %; BASOPHILS ABSOLUTE 0.01 10/3/uL (0.0-0.16); EOSINOPHILS 0.8 %; EOSINOPHILS ABSOLUTE 0.08 10/3/uL (0.0-0.53); ER CBC TAT 0 Hrs 11 Mins; HEMATOCRIT 35.2 % (36.0-48.0); HEMOGLOBIN 12.3 g/dL (12.0-16.0); IMMATURE GRANULOCYTES 0.3 %; IMMATURE GRANULOCYTES ABSOLUTE 0.03 10/3/uL (0.0-0.11); LYMPHOCYTES 21.3 %; LYMPHOCYTES ABSOLUTE 2.01 10/3/uL (0.67-4.30); MEAN CORPUS HGB CONC 34.9 g/dL (32.0-36.0); MEAN CORPUSCULAR HEMOGLOB 31.8 pg (26.0-34.0); MEAN PLATELET VOLUME 9.8 fL (9.2-13.0); MONOCYTES 8.5 %; PLATELET COUNT 315 10/3/uL (150-400); RED CELL COUNT 3.87 10/6/uL (4.0-5.6); WHITE BLOOD CELLS 9.4 10/3/uL (4.5-10.5)
[2017-02-01 12:23] LABS: MANUAL DIFF NO %
[2017-02-01 12:28] LABS: INTERNATIONAL NORMAL RATI 1.2 UNITS (-)
[2017-02-01 12:29] LABS: PARTIAL THROMBO TIME 33.8 SEC (22.5-37.2); PROTIME (NOT ORD) 14.7 SEC (12.0-14.5)
[2017-02-01 12:40] LABS: A/G RATIO 0.5 (0.7-1.9); ALKALINE PHOSPHATASE 197 U/L (45-117); BUN (BLOOD UREA NITROGEN) 26 MG/DL (6-23); CALCIUM, SERUM 9.7 MG/DL (8.5-10.4); CHLORIDE, SERUM 99 MMOL/L (96-112); CO2 (CARBON DIOXIDE) 27 MMOL/L (24-34); CREATININE 1.25 MG/DL (0.55-1.02); GFR AFRICAN AMERICAN 53 ML/MIN (>=60); GFR NON AFRICAN AMERICAN 45 ML/MIN (>=60); GLOBULIN 5.7 G/DL (2.5-4.1); GLUCOSE, SERUM 123 MG/DL (60-99); POTASSIUM, SERUM 3.2 MMOL/L (3.5-5.3); SGOT(AST) 31 U/L (5-40); SGPT(ALT) 29 U/L (5-65); SODIUM, SERUM 137 MMOL/L (135-148); TOTAL BILIRUBIN 0.5 MG/DL (0-1.2); TOTAL PROTEIN 8.7 G/DL (6.0-8.5); TROPONIN I <0.02 NG/ML (<0.05)
[~2017-02-01 12:46] MED LIST changes: +ADVIL PO; +GLUCPH PO; +K-TABS10 MEQ PO; +LIDOCAINE PO; +LIDODERM TOP; +LOP50 PO; +MAGOX4 PO; +MEDROLPAK4 PO; +PROTONIX PO; +SUCR PO; +[UNRECOGNIZED DRUG - OTHER] PO
[2017-02-01] MEDS ORDERED: METPAKSF PO (16:18)
[2017-02-01 20:44] LABS: CK-MB 0.7 NG/ML; CPK 80 U/L (0-200); PHOSPHORUS, SERUM 3.1 MG/DL (2.5-4.5)
[2017-02-02 04:24] LABS: BASOPHILS 0.3 %; BASOPHILS ABSOLUTE 0.02 10/3/uL (0.0-0.16); EOSINOPHILS 2.2 %; EOSINOPHILS ABSOLUTE 0.16 10/3/uL (0.0-0.53); HEMATOCRIT 34.9 % (36.0-48.0); HEMOGLOBIN 11.8 g/dL (12.0-16.0); IMMATURE GRANULOCYTES 0.1 %; IMMATURE GRANULOCYTES ABSOLUTE 0.01 10/3/uL (0.0-0.11); LYMPHOCYTES 30.6 %; LYMPHOCYTES ABSOLUTE 2.24 10/3/uL (0.67-4.30); MEAN CORPUS HGB CONC 33.8 g/dL (32.0-36.0); MEAN CORPUSCULAR HEMOGLOB 31.4 pg (26.0-34.0); MEAN CORPUSCULAR VOLUME 92.8 fL (80-100); MEAN PLATELET VOLUME 9.8 fL (9.2-13.0); MONOCYTES 10.2 %; MONOCYTES ABSOLUTE 0.75 10/3/uL (0.21-1.20); NEUTROPHILS 56.6 %; NEUTROPHILS ABSOLUTE 4.14 10/3/uL (2.02-8.40); PLATELET COUNT 322 10/3/uL (150-400); RBC DISTRIBUTION WIDTH 13.2 % (12.0-16.0); RED CELL COUNT 3.76 10/6/uL (4.0-5.6); WHITE BLOOD CELLS 7.3 10/3/uL (4.5-10.5)
[2017-02-02 04:26] LABS: MANUAL DIFF NO %
[2017-02-02 04:39] LABS: ALBUMIN 2.9 G/DL (3.5-5.0); BUN (BLOOD UREA NITROGEN) 28 MG/DL (6-23); CALCIUM, SERUM 9.2 MG/DL (8.5-10.4); CHLORIDE, SERUM 104 MMOL/L (96-112); CO2 (CARBON DIOXIDE) 28 MMOL/L (24-34); CPK 69 U/L (0-200); CREATININE 1.13 MG/DL (0.55-1.02); GFR AFRICAN AMERICAN 59 ML/MIN (>=60); GFR NON AFRICAN AMERICAN 51 ML/MIN (>=60); GLUCOSE, SERUM 100 MG/DL (60-99); POTASSIUM, SERUM 3.3 MMOL/L (3.5-5.3); SODIUM, SERUM 135 MMOL/L (135-148); TROPONIN I <0.02 NG/ML (<0.05)
[2017-02-02 04:41] LABS: CK-MB 1.1 NG/ML; PHOSPHORUS, SERUM 4.2 MG/DL (2.5-4.5)
[2017-02-03 04:51] LABS: BASOPHILS 0.2 %; BASOPHILS ABSOLUTE 0.02 10/3/uL (0.0-0.16); EOSINOPHILS 2.6 %; EOSINOPHILS ABSOLUTE 0.22 10/3/uL (0.0-0.53); HEMATOCRIT 32.2 % (36.0-48.0); HEMOGLOBIN 10.8 g/dL (12.0-16.0); IMMATURE GRANULOCYTES 0.3 %; IMMATURE GRANULOCYTES ABSOLUTE 0.03 10/3/uL (0.0-0.11); LYMPHOCYTES 28.1 %; LYMPHOCYTES ABSOLUTE 2.42 10/3/uL (0.67-4.30); MANUAL DIFF NO %; MEAN CORPUS HGB CONC 33.5 g/dL (32.0-36.0); MEAN CORPUSCULAR HEMOGLOB 31.3 pg (26.0-34.0); MEAN CORPUSCULAR VOLUME 93.3 fL (80-100); MEAN PLATELET VOLUME 9.5 fL (9.2-13.0); MONOCYTES ABSOLUTE 0.86 10/3/uL (0.21-1.20); NEUTROPHILS 58.8 %; NEUTROPHILS ABSOLUTE 5.05 10/3/uL (2.02-8.40); PLATELET COUNT 305 10/3/uL (150-400); RED CELL COUNT 3.45 10/6/uL (4.0-5.6); WHITE BLOOD CELLS 8.6 10/3/uL (4.5-10.5)
[2017-02-03 05:04] LABS: CALCIUM, SERUM 9.1 MG/DL (8.5-10.4); CHLORIDE, SERUM 106 MMOL/L (96-112); CO2 (CARBON DIOXIDE) 26 MMOL/L (24-34); CREATININE 1.05 MG/DL (0.55-1.02); GFR AFRICAN AMERICAN 65 ML/MIN (>=60); GFR NON AFRICAN AMERICAN 56 ML/MIN (>=60); GLUCOSE, SERUM 84 MG/DL (60-99); SODIUM, SERUM 133 MMOL/L (135-148)
[2017-02-03 05:09] LABS: BUN (BLOOD UREA NITROGEN) 19 MG/DL (6-23); POTASSIUM, SERUM 4.3 MMOL/L (3.5-5.3)
[2017-02-04 04:36] LABS: BASOPHILS 0.2 %; BASOPHILS ABSOLUTE 0.02 10/3/uL (0.0-0.16); EOSINOPHILS 3.2 %; EOSINOPHILS ABSOLUTE 0.27 10/3/uL (0.0-0.53); HEMATOCRIT 32.2 % (36.0-48.0); HEMOGLOBIN 10.4 g/dL (12.0-16.0); IMMATURE GRANULOCYTES 0.2 %; IMMATURE GRANULOCYTES ABSOLUTE 0.02 10/3/uL (0.0-0.11); LYMPHOCYTES 35.7 %; LYMPHOCYTES ABSOLUTE 2.98 10/3/uL (0.67-4.30); MEAN CORPUS HGB CONC 32.3 g/dL (32.0-36.0); MEAN CORPUSCULAR HEMOGLOB 30.1 pg (26.0-34.0); MEAN CORPUSCULAR VOLUME 93.3 fL (80-100); MEAN PLATELET VOLUME 9.4 fL (9.2-13.0); MONOCYTES 7.7 %; MONOCYTES ABSOLUTE 0.64 10/3/uL (0.21-1.20); NEUTROPHILS ABSOLUTE 4.41 10/3/uL (2.02-8.40); PLATELET COUNT 295 10/3/uL (150-400); RBC DISTRIBUTION WIDTH 13.1 % (12.0-16.0); RED CELL COUNT 3.45 10/6/uL (4.0-5.6); WHITE BLOOD CELLS 8.3 10/3/uL (4.5-10.5)
[2017-02-04 04:46] LABS: MANUAL DIFF NO %
[2017-02-04 05:00] LABS: CALCIUM, SERUM 9.3 MG/DL (8.5-10.4); CHLORIDE, SERUM 102 MMOL/L (96-112); CO2 (CARBON DIOXIDE) 30 MMOL/L (24-34); GFR AFRICAN AMERICAN 69 ML/MIN (>=60); GFR NON AFRICAN AMERICAN 59 ML/MIN (>=60); GLUCOSE, SERUM 86 MG/DL (60-99); POTASSIUM, SERUM 4.2 MMOL/L (3.5-5.3); SODIUM, SERUM 137 MMOL/L (135-148)
[2017-02-04 05:04] LABS: BUN (BLOOD UREA NITROGEN) 14 MG/DL (6-23)
[2017-02-04 20:45] LABS: HEMOGLOBIN 11.2 g/dL (12.0-16.0)
[2017-02-04 20:59] LABS: BUN (BLOOD UREA NITROGEN) 14 MG/DL (6-23); CALCIUM, SERUM 9.2 MG/DL (8.5-10.4); CHLORIDE, SERUM 104 MMOL/L (96-112); CO2 (CARBON DIOXIDE) 30 MMOL/L (24-34); CREATININE 1.13 MG/DL (0.55-1.02); GFR AFRICAN AMERICAN 59 ML/MIN (>=60); GFR NON AFRICAN AMERICAN 51 ML/MIN (>=60); POTASSIUM, SERUM 4.2 MMOL/L (3.5-5.3); SODIUM, SERUM 138 MMOL/L (135-148)
[2017-02-04 21:00] LABS: GLUCOSE, SERUM 145 MG/DL (60-99)
[2017-02-05 05:15] LABS: BASOPHILS 0.1 %; BASOPHILS ABSOLUTE 0.01 10/3/uL (0.0-0.16); EOSINOPHILS 0 %; HEMATOCRIT 30.8 % (36.0-48.0); HEMOGLOBIN 10.2 g/dL (12.0-16.0); IMMATURE GRANULOCYTES 0.7 %; IMMATURE GRANULOCYTES ABSOLUTE 0.09 10/3/uL (0.0-0.11); LYMPHOCYTES 7.6 %; LYMPHOCYTES ABSOLUTE 0.95 10/3/uL (0.67-4.30); MEAN CORPUS HGB CONC 33.1 g/dL (32.0-36.0); MEAN CORPUSCULAR HEMOGLOB 30.6 pg (26.0-34.0); MEAN CORPUSCULAR VOLUME 92.5 fL (80-100); MEAN PLATELET VOLUME 9.4 fL (9.2-13.0); MONOCYTES 3.4 %; MONOCYTES ABSOLUTE 0.43 10/3/uL (0.21-1.20); NEUTROPHILS 88.2 %; PLATELET COUNT 335 10/3/uL (150-400); RBC DISTRIBUTION WIDTH 13.2 % (12.0-16.0); RED CELL COUNT 3.33 10/6/uL (4.0-5.6)
[2017-02-05 05:16] LABS: MANUAL DIFF NO %; WHITE BLOOD CELLS 12.5 10/3/uL (4.5-10.5)
[2017-02-05 05:29] LABS: A/G RATIO 0.6 (0.7-1.9); ALBUMIN 2.8 G/DL (3.5-5.0); BUN (BLOOD UREA NITROGEN) 15 MG/DL (6-23); CHLORIDE, SERUM 101 MMOL/L (96-112); CO2 (CARBON DIOXIDE) 28 MMOL/L (24-34); CREATININE 1.12 MG/DL (0.55-1.02); GFR AFRICAN AMERICAN 60 ML/MIN (>=60); GFR NON AFRICAN AMERICAN 52 ML/MIN (>=60); GLOBULIN 4.8 G/DL (2.5-4.1); GLUCOSE, SERUM 126 MG/DL (60-99); POTASSIUM, SERUM 4.6 MMOL/L (3.5-5.3); SGOT(AST) 36 U/L (5-40); SGPT(ALT) 24 U/L (5-65); SODIUM, SERUM 135 MMOL/L (135-148); TOTAL BILIRUBIN 0.3 MG/DL (0-1.2); TOTAL PROTEIN 7.6 G/DL (6.0-8.5)
[2017-02-05 05:31] LABS: ALKALINE PHOSPHATASE 163 U/L (45-117)
[2017-02-07 14:11] LABS: BASOPHILS 0.2 %; BASOPHILS ABSOLUTE 0.02 10/3/uL (0.0-0.16); EOSINOPHILS 3.1 %; EOSINOPHILS ABSOLUTE 0.28 10/3/uL (0.0-0.53); HEMATOCRIT 29.4 % (36.0-48.0); HEMOGLOBIN 9.5 g/dL (12.0-16.0); IMMATURE GRANULOCYTES 0.6 %; IMMATURE GRANULOCYTES ABSOLUTE 0.05 10/3/uL (0.0-0.11); LYMPHOCYTES 31.4 %; LYMPHOCYTES ABSOLUTE 2.85 10/3/uL (0.67-4.30); MEAN CORPUS HGB CONC 32.3 g/dL (32.0-36.0); MEAN CORPUSCULAR HEMOGLOB 30.4 pg (26.0-34.0); MEAN CORPUSCULAR VOLUME 93.9 fL (80-100); MONOCYTES 7.9 %; MONOCYTES ABSOLUTE 0.72 10/3/uL (0.21-1.20); NEUTROPHILS 56.8 %; NEUTROPHILS ABSOLUTE 5.16 10/3/uL (2.02-8.40); PLATELET COUNT 364 10/3/uL (150-400); RBC DISTRIBUTION WIDTH 13.6 % (12.0-16.0); RED CELL COUNT 3.13 10/6/uL (4.0-5.6); WHITE BLOOD CELLS 9.1 10/3/uL (4.5-10.5)
[2017-02-07 14:12] LABS: MANUAL DIFF NO %
[2017-02-07 14:20] LABS: BUN (BLOOD UREA NITROGEN) 13 MG/DL (6-23); CALCIUM, SERUM 8.7 MG/DL (8.5-10.4); CHLORIDE, SERUM 97 MMOL/L (96-112); CO2 (CARBON DIOXIDE) 31 MMOL/L (24-34); CREATININE 1.02 MG/DL (0.55-1.02); GFR AFRICAN AMERICAN 67 ML/MIN (>=60); GFR NON AFRICAN AMERICAN 58 ML/MIN (>=60); GLUCOSE, SERUM 123 MG/DL (60-99); POTASSIUM, SERUM 4.4 MMOL/L (3.5-5.3); SODIUM, SERUM 132 MMOL/L (135-148)
[2017-02-08 04:49] LABS: BASOPHILS 0.2 %; BASOPHILS ABSOLUTE 0.02 10/3/uL (0.0-0.16); EOSINOPHILS 3.4 %; EOSINOPHILS ABSOLUTE 0.33 10/3/uL (0.0-0.53); HEMATOCRIT 28.6 % (36.0-48.0); HEMOGLOBIN 9.4 g/dL (12.0-16.0); IMMATURE GRANULOCYTES 0.5 %; IMMATURE GRANULOCYTES ABSOLUTE 0.05 10/3/uL (0.0-0.11); LYMPHOCYTES 33.2 %; LYMPHOCYTES ABSOLUTE 3.21 10/3/uL (0.67-4.30); MEAN CORPUS HGB CONC 32.9 g/dL (32.0-36.0); MEAN CORPUSCULAR HEMOGLOB 30.8 pg (26.0-34.0); MEAN CORPUSCULAR VOLUME 93.8 fL (80-100); MEAN PLATELET VOLUME 9.1 fL (9.2-13.0); MONOCYTES 8.1 %; MONOCYTES ABSOLUTE 0.78 10/3/uL (0.21-1.20); NEUTROPHILS 54.6 %; NEUTROPHILS ABSOLUTE 5.27 10/3/uL (2.02-8.40); PLATELET COUNT 340 10/3/uL (150-400); RBC DISTRIBUTION WIDTH 13.6 % (12.0-16.0); RED CELL COUNT 3.05 10/6/uL (4.0-5.6); WHITE BLOOD CELLS 9.7 10/3/uL (4.5-10.5)
[2017-02-08 04:51] LABS: MANUAL DIFF NO %
[2017-02-08 05:08] LABS: BUN (BLOOD UREA NITROGEN) 14 MG/DL (6-23); CALCIUM, SERUM 8.9 MG/DL (8.5-10.4); CHLORIDE, SERUM 95 MMOL/L (96-112); CO2 (CARBON DIOXIDE) 30 MMOL/L (24-34); CREATININE 1.13 MG/DL (0.55-1.02); GFR AFRICAN AMERICAN 59 ML/MIN (>=60); GFR NON AFRICAN AMERICAN 51 ML/MIN (>=60); GLUCOSE, SERUM 117 MG/DL (60-99); POTASSIUM, SERUM 4.4 MMOL/L (3.5-5.3); SODIUM, SERUM 132 MMOL/L (135-148)
[2017-02-09 05:04] LABS: BASOPHILS 0.3 %; BASOPHILS ABSOLUTE 0.02 10/3/uL (0.0-0.16); EOSINOPHILS 5.2 %; EOSINOPHILS ABSOLUTE 0.41 10/3/uL (0.0-0.53); HEMATOCRIT 27.7 % (36.0-48.0); HEMOGLOBIN 9.2 g/dL (12.0-16.0); IMMATURE GRANULOCYTES 0.5 %; IMMATURE GRANULOCYTES ABSOLUTE 0.04 10/3/uL (0.0-0.11); LYMPHOCYTES ABSOLUTE 2.19 10/3/uL (0.67-4.30); MEAN CORPUS HGB CONC 33.2 g/dL (32.0-36.0); MEAN CORPUSCULAR HEMOGLOB 30.9 pg (26.0-34.0); MEAN PLATELET VOLUME 9.2 fL (9.2-13.0); MONOCYTES 6.5 %; MONOCYTES ABSOLUTE 0.51 10/3/uL (0.21-1.20); NEUTROPHILS 59.5 %; NEUTROPHILS ABSOLUTE 4.66 10/3/uL (2.02-8.40); PLATELET COUNT 349 10/3/uL (150-400); RBC DISTRIBUTION WIDTH 13.2 % (12.0-16.0); RED CELL COUNT 2.98 10/6/uL (4.0-5.6); WHITE BLOOD CELLS 7.8 10/3/uL (4.5-10.5)
[2017-02-09 05:05] LABS: MANUAL DIFF NO %
[2017-02-09 05:24] LABS: BUN (BLOOD UREA NITROGEN) 14 MG/DL (6-23); CALCIUM, SERUM 9.2 MG/DL (8.5-10.4); CHLORIDE, SERUM 99 MMOL/L (96-112); CO2 (CARBON DIOXIDE) 31 MMOL/L (24-34); CREATININE 0.84 MG/DL (0.55-1.02); GFR AFRICAN AMERICAN 85 ML/MIN (>=60); GFR NON AFRICAN AMERICAN 73 ML/MIN (>=60); GLUCOSE, SERUM 111 MG/DL (60-99); POTASSIUM, SERUM 4.6 MMOL/L (3.5-5.3); SODIUM, SERUM 136 MMOL/L (135-148)
[2017-02-10 05:10] LABS: BASOPHILS 0.3 %; BASOPHILS ABSOLUTE 0.02 10/3/uL (0.0-0.16); EOSINOPHILS 5.2 %; HEMATOCRIT 28.5 % (36.0-48.0); HEMOGLOBIN 9.3 g/dL (12.0-16.0); IMMATURE GRANULOCYTES 0.3 %; IMMATURE GRANULOCYTES ABSOLUTE 0.02 10/3/uL (0.0-0.11); LYMPHOCYTES 30.9 %; LYMPHOCYTES ABSOLUTE 2.38 10/3/uL (0.67-4.30); MEAN CORPUS HGB CONC 32.6 g/dL (32.0-36.0); MEAN CORPUSCULAR HEMOGLOB 30.4 pg (26.0-34.0); MEAN CORPUSCULAR VOLUME 93.1 fL (80-100); MONOCYTES 6.9 %; MONOCYTES ABSOLUTE 0.53 10/3/uL (0.21-1.20); NEUTROPHILS 56.4 %; NEUTROPHILS ABSOLUTE 4.34 10/3/uL (2.02-8.40); PLATELET COUNT 360 10/3/uL (150-400); RBC DISTRIBUTION WIDTH 13.4 % (12.0-16.0); RED CELL COUNT 3.06 10/6/uL (4.0-5.6); WHITE BLOOD CELLS 7.7 10/3/uL (4.5-10.5)
[2017-02-10 05:13] LABS: MANUAL DIFF NO %
[2017-02-10 05:25] LABS: BUN (BLOOD UREA NITROGEN) 12 MG/DL (6-23); CHLORIDE, SERUM 99 MMOL/L (96-112); CO2 (CARBON DIOXIDE) 34 MMOL/L (24-34); CREATININE 0.83 MG/DL (0.55-1.02); GFR AFRICAN AMERICAN 86 ML/MIN (>=60); GFR NON AFRICAN AMERICAN 75 ML/MIN (>=60); GLUCOSE, SERUM 92 MG/DL (60-99); POTASSIUM, SERUM 4.3 MMOL/L (3.5-5.3); SODIUM, SERUM 137 MMOL/L (135-148)
== END 2017-02-10 14:59 | DRG 460 ==
LOC: ER 12:46 → 3SO 18:31
PROVIDERS: Internal Medicine; Nurse Practitioner; Orthopaedic Surgery Orthopaedic Surgery of the Spine; Physician Assistant
PROC: 0SG30AJ Fusion of Lumbosacral Joint with Interbody Fusion Device, Posterior Approach, Anterior Column, Open Approach (ICD-10-PCS; principal; 2017-02-01)
PROC: 0ST40ZZ Resection of Lumbosacral Disc, Open Approach (ICD-10-PCS; 2017-02-01)
PROC: 4A11X4G Monitoring of Peripheral Nervous Electrical Activity, Intraoperative, External Approach (ICD-10-PCS; 2017-02-01)
DX: M51.17 Intervertebral disc disorders with radiculopathy, lumbosacral region (principal); N17.9 Acute kidney failure, unspecified; I10 Essential (primary) hypertension; R09.02 Hypoxemia; K21.9 Gastro-esophageal reflux disease without esophagitis; E11.9 Type 2 diabetes mellitus without complications; F32.9 Major depressive disorder, single episode, unspecified; E66.9 Obesity, unspecified; Z68.33 Body mass index [BMI] 33.0-33.9, adult
CPT/HCPCS: 36415; 71010; 72148; 74176; 80048; 80053; 80069; 81001; 82550; 82553; 82962; 83690; 83735; 83880; 84100; 84484; 85014; 85018; 85025; 85610; 85730; 86140; 86850; 86900; 86901; 87641; 88304; 88311; 93005; 94762; 96374; 97110-GP; 97116-GP; 97161-GP; 97166-GO; 97535-GO; 99285; A9270-GY; C1713; J0690; J1170; J1644; J1885; J2250; J2274; J2405; J2710; J3010; J3370; J3475; J3480